=== PATIENT | female | born 1950 | race Caucasian/White ===

== ENCOUNTER 2022-12-11 17:03 | Inpatient (IN) | payer OTHER, MEDICAID ==
[~2022-12-11] VITALS: Ht 154.9 cm; Wt 68.9 kg
[~2022-12-11 17:03] MED LIST: CHOL500013 PO; DIF100 PO; DOXY100C5 PO; INSU100V7 SUBCUT; INSU100V9 SUBCUT; IPRA3AMP9 INH; LOVI40 SQ; SYN75 PO
[2022-12-11] MEDS ORDERED: NACL 0.9% 1,000 ML IV ONE ×2 (17:15→18:15)
[2022-12-11 17:21] VITALS: BP_SYST 68; RESP 20; TEMP 98.2; O2SAT 98
[2022-12-11] MEDS ORDERED: LEVO125T8 PO (17:48)
[2022-12-11] MEDS ORDERED: METF-379 PO (17:48)
[2022-12-11] MEDS ORDERED: APIX5TAB PO (17:48)
[2022-12-11] MEDS ORDERED: EMPA25TA PO (17:48)
[2022-12-11] MEDS ORDERED: OLME20TA23 PO (17:48)
[2022-12-11] MEDS ORDERED: ASPI-1393 PO (17:48)
[2022-12-11] MEDS ORDERED: GABA-531 PO (17:51)
[2022-12-11] MEDS ORDERED: [UNRECOGNIZED DRUG - CODE] PO (17:51)
[2022-12-11] MEDS ORDERED: LIDOCAINE/EPI 1% 1:100000 20 ML VIAL ONE (17:58)
[2022-12-11] MEDS ORDERED: NOREPINEPHRINE 4 MG/4 ML VIAL IV ONE (18:12)
[2022-12-11 18:20] LABS: BASOPHILS # (AUTO) 0.1 K/uL (0.0-0.2); EOSINOPHILS # (AUTO) 0.1 K/uL (0.0-0.4); EOSINOPHILS % (AUTO) 1.2 % (0.0-4.0); HEMATOCRIT 32.8 % (36-48); HEMOGLOBIN 10.8 g/dL (12.0-16.0); LYMPHOCYTES # (AUTO) 1.9 K/uL (1.0-5.5); LYMPHOCYTES % (AUTO) 26.3 % (20.5-51.5); MEAN CORPUSCULAR HEMOGLOBIN 33 pg (27-31); MEAN CORPUSCULAR HGB CONC 33 % (32-36); MEAN CORPUSCULAR VOLUME 101 fL (79.0-98.0); MONOCYTES # (AUTO) 0.6 K/uL (0.0-1.0); NEUTROPHILS # (AUTO) 4.5 K/uL (1.8-7.7); NEUTROPHILS % (AUTO) 63.5 % (40.0-70.0); PLATELET COUNT (AUTO) 245 K/uL (130-430); RED BLOOD CELL COUNT(AUTO) 3.23 MIL/uL (4.2-6.2); RED CELL DISTRIBUTION WIDTH 13.2 % (9.0-15.0); WHITE BLOOD COUNT (AUTO) 7.1 K/uL (4.8-10.8)
[2022-12-11 18:28] LABS: ANION GAP 12 (5-15); CALCIUM 8.1 mg/dL (8.4-11.0); CARBON DIOXIDE 19 mmol/L (23-29); CHLORIDE 99 mmol/L (98-107); CREATININE 2.91 mg/dL (0.55-1.30); GLUCOSE 345 mg/dL (74-106); POTASSIUM 4.5 mmol/L (3.5-5.1); SODIUM SERUM 130 mmol/L (136-145); UREA NITROGEN, BLOOD 66 mg/dL (8-21)
[2022-12-11] MEDS ORDERED: NOREPINEPHRINE BITARTRATE 4 MG in NS 246 ML IV ONE ×2 (18:30→19:15)
[2022-12-11 18:31] LABS: BLOOD GAS HCO3 18.4 mmol/L (21.0-27.0); BLOOD GAS PCO2 42.4 mmHg (35.0-45.0)
[2022-12-11 18:32] LABS: INR 1.1 (0.8-1.2); PROTHROMBIN TIME 11.2 SECS (9.5-12.5)
[2022-12-11 18:32] LABS: BLOOD GAS PH 7.255 (7.350-7.450)
[2022-12-11 18:33] LABS: ABG O2 SAT% ESTIMATE 85.2 % (94.0-100.0); ALLEN'S TEST POSITIVE (P); BLOOD GAS BASE EXCESS -8.4 mmol/L (-3.0-3.0); BLOOD GAS PO2 56.8 mmHg (75.0-100.0)
[2022-12-11 18:39] LABS: ALBUMIN 2.5 g/dL (3.4-4.8); ASPARTATE AMINOTRANSFERASE 12 U/L (10-37); TOTAL BILIRUBIN 0.3 mg/dL (0.0-1.0); TOTAL PROTEIN, SERUM 5.3 g/dL (6.4-8.3)
[2022-12-11 18:44] LABS: ALANINE AMINOTRANSFERASE 6 U/L (12-78)
[2022-12-11] MEDS ORDERED: cefTRIAXone 1 GM IVPB PREMIX 50 ML IV ONE (19:00)
[2022-12-11 19:12] LABS: CREATINE KINASE, TOTAL 35 U/L (26-192)
[2022-12-11 19:31] LABS: ACETONE, SERUM TRACE (NEGATIVE)
[2022-12-11 19:35] LABS: CLARITY/URINE CLEAR (CLEAR); COLOR,URINE YELLOW (YELLOW); PH,URINE 5.5 (5.0-8.0)
[2022-12-11 19:36] LABS: BILIRUBIN,URINE 1+ (NEGATIVE); BLOOD, URINE NEGATIVE (NEGATIVE); GLUCOSE,URINE 2+ (NEGATIVE); KETONES,URINE 1+ (NEGATIVE); LEUKOCYTE ESTERASE ,URINE NEGATIVE (NEGATIVE); NITRITE, URINE NEGATIVE (NEGATIVE); PROTEIN URINE NEGATIVE (NEGATIVE); UROBILINOGEN,URINE 0.2 (0.2-1.0)
[2022-12-11] MEDS ORDERED: INSULIN REGULAR, HUMAN 100 UNITS in NS 99 ML IV ONE ×2 (19:45)
[2022-12-11] MEDS ORDERED: NACL 0.9% 500 ML IV ONE (20:45)
[2022-12-11] MEDS ORDERED: INSULIN REGULAR, HUMAN 100 UNITS in NS 99 ML IV PRN ×2 (20:45)
[2022-12-11 21:02] LABS: RBC,URINE NONE SEEN /HPF (0-3)
[2022-12-11 21:03] LABS: BACTERIA,URINE RARE /HPF (None Seen); WBC,URINE NONE SEEN /HPF (0-3)
[2022-12-11] MEDS: NACL 0.9% 1,000 ML IV SCH ×2 (22:10→23:59)
[2022-12-11 22:46] VITALS: BP_SYST 102; PULSE 75; RESP 14; TEMP 96.8; O2SAT 97
[2022-12-11 23:00] VITALS: BP_SYST 102; BP_SYST 109; PULSE 77; RESP 10; RESP 9; TEMP 96.8; O2SAT 98; O2SAT 99
[2022-12-12] VITALS (24 sets, daily range): BP systolic 81–138; PULSE 67–111; RESP 10–28; TEMP 97–98.2; O2SAT 92–100
[2022-12-12] MEDS ORDERED: NOREPINEPHRINE 4 MG/4 ML VIAL IV ONE ×2 (00:35→05:57)
[2022-12-12] MEDS: NOREPINEPHRINE BITARTRATE 4 MG in NS 246 ML IV PRN ×2 (01:01→06:05)
[2022-12-12 04:56] LABS: ALANINE AMINOTRANSFERASE 9 U/L (12-78); ALBUMIN 2.8 g/dL (3.4-4.8); ANION GAP 13 (5-15); ASPARTATE AMINOTRANSFERASE 12 U/L (10-37); CALCIUM 8.5 mg/dL (8.4-11.0); CARBON DIOXIDE 21 mmol/L (23-29); CHLORIDE 108 mmol/L (98-107); CREATININE 1.69 mg/dL (0.55-1.30); GLUCOSE 115 mg/dL (74-106); POTASSIUM 3.9 mmol/L (3.5-5.1); SODIUM SERUM 142 mmol/L (136-145); THYROID STIMULATING HORMONE 2.83 uIu/mL (0.34-4.82); TOTAL BILIRUBIN 0.3 mg/dL (0.0-1.0); TOTAL PROTEIN, SERUM 6.3 g/dL (6.4-8.3); UREA NITROGEN, BLOOD 48 mg/dL (8-21)
[2022-12-12 05:03] LABS: BASOPHILS # (AUTO) 0.2 K/uL (0.0-0.2); BASOPHILS % (AUTO) 2.2 % (0.0-2.0); EOSINOPHILS % (AUTO) 0.1 % (0.0-4.0); HEMATOCRIT 39.6 % (36-48); HEMOGLOBIN 12.9 g/dL (12.0-16.0); LYMPHOCYTES # (AUTO) 1.6 K/uL (1.0-5.5); LYMPHOCYTES % (AUTO) 14.6 % (20.5-51.5); MEAN CORPUSCULAR HEMOGLOBIN 33 pg (27-31); MEAN CORPUSCULAR HGB CONC 33 % (32-36); MEAN CORPUSCULAR VOLUME 102 fL (79.0-98.0); MONOCYTES # (AUTO) 0.5 K/uL (0.0-1.0); MONOCYTES % (AUTO) 4.4 % (1.7-9.3); NEUTROPHILS # (AUTO) 8.6 K/uL (1.8-7.7); NEUTROPHILS % (AUTO) 78.7 % (40.0-70.0); PLATELET COUNT (AUTO) 314 K/uL (130-430); RED BLOOD CELL COUNT(AUTO) 3.91 MIL/uL (4.2-6.2); RED CELL DISTRIBUTION WIDTH 13.3 % (9.0-15.0); WHITE BLOOD COUNT (AUTO) 10.9 K/uL (4.8-10.8)
[2022-12-12] MEDS: NACL 0.9% 1,000 ML IV SCH ×3 (06:34→21:27)
[2022-12-12] MEDS ORDERED: NS 500 ML IV ONE (08:30)
[2022-12-12] MEDS ORDERED: NACL 0.9% 1,000 ML IV ONE (09:00)
[2022-12-12 09:05] LABS: CHOLESTEROL 266 mg/dL (<200); HDL CHOLESTEROL 52 mg/dL (>55); LIPASE 233 U/L (73-393); TRIGLYCERIDES 199 mg/dL (30-150)
[2022-12-12] MEDS ORDERED: LEVOTHYROXINE SODIUM 0.125 MG TABLET PO ONE (11:00)
[2022-12-12] MEDS ORDERED: NOREPINEPHRINE BITARTRATE 8 MG in NS 246 ML IV PRN (11:00)
[2022-12-12] MEDS: NOREPINEPHRINE BITARTRATE 8 MG in NS 246 ML IV PRN ×2 (12:04→20:14)
[2022-12-12] MEDS: GABAPENTIN 300 MG CAPSULE PO SCH ×2 (14:54→20:48)
[2022-12-12] MEDS: INSULIN REGULAR, HUMAN 100 UNITS/ML, 3 ML VIAL (humuLIN R) SUBCUT PRN ×4 (14:54→20:59)
[2022-12-12] MEDS: APIXABAN 2.5 MG TABLET PO SCH (20:48)
[2022-12-12] MEDS: INSULIN GLARGINE 100 UNITS/ML, 10 ML VIAL SUBCUT SCH (20:58)
[2022-12-12] MEDS ORDERED: hydrALAZINE HCL 20 MG/ML VIAL IVP PRN (22:30)
[2022-12-13] VITALS (24 sets, daily range): BP systolic 90–136; PULSE 63–88; RESP 15–24; TEMP 96.9–98.2; O2SAT 92–98
[2022-12-13] MEDS ORDERED: NOREPINEPHRINE 4 MG/4 ML VIAL IV ONE (02:51)
[2022-12-13] MEDS: NACL 0.9% 1,000 ML IV SCH ×3 (05:24→19:25)
[2022-12-13] MEDS: NOREPINEPHRINE BITARTRATE 8 MG in NS 246 ML IV PRN (05:35)
[2022-12-13 06:08] LABS: BASOPHILS # (AUTO) 0.1 K/uL (0.0-0.2); BASOPHILS % (AUTO) 1.4 % (0.0-2.0); EOSINOPHILS # (AUTO) 0.1 K/uL (0.0-0.4); EOSINOPHILS % (AUTO) 0.7 % (0.0-4.0); HEMATOCRIT 36.1 % (36-48); HEMOGLOBIN 11.9 g/dL (12.0-16.0); LYMPHOCYTES # (AUTO) 2.8 K/uL (1.0-5.5); LYMPHOCYTES % (AUTO) 31.8 % (20.5-51.5); MEAN CORPUSCULAR HEMOGLOBIN 33 pg (27-31); MEAN CORPUSCULAR HGB CONC 33 % (32-36); MEAN CORPUSCULAR VOLUME 100 fL (79.0-98.0); MONOCYTES # (AUTO) 0.4 K/uL (0.0-1.0); NEUTROPHILS # (AUTO) 5.4 K/uL (1.8-7.7); NEUTROPHILS % (AUTO) 61.1 % (40.0-70.0); PLATELET COUNT (AUTO) 236 K/uL (130-430); WHITE BLOOD COUNT (AUTO) 8.9 K/uL (4.8-10.8)
[2022-12-13 06:23] LABS: ANION GAP 10 (5-15); CALCIUM 8.1 mg/dL (8.4-11.0); CARBON DIOXIDE 21 mmol/L (23-29); CHLORIDE 113 mmol/L (98-107); CREATININE 0.91 mg/dL (0.55-1.30); GLUCOSE 84 mg/dL (74-106); PHOSPHORUS 1.9 mg/dL (2.7-4.5); POTASSIUM 3.7 mmol/L (3.5-5.1); SODIUM SERUM 144 mmol/L (136-145); UREA NITROGEN, BLOOD 15 mg/dL (8-21)
[2022-12-13] MEDS: LEVOTHYROXINE SODIUM 0.125 MG TABLET PO SCH (06:55)
[2022-12-13] MEDS: BACLOFEN 10 MG TABLET PO SCH (09:52)
[2022-12-13] MEDS: ASPIRIN 81 MG TABLET(ECOTRIN) PO SCH (09:52)
[2022-12-13] MEDS: APIXABAN 2.5 MG TABLET PO SCH ×2 (09:53→21:09)
[2022-12-13] MEDS: GABAPENTIN 300 MG CAPSULE PO SCH ×3 (09:54→21:01)
[2022-12-13] MEDS: CHOLECALCIFEROL (VITAMIN D3) 5,000 UNIT TABLET PO SCH (09:54)
[2022-12-13] MEDS ORDERED: ALBUMIN HUMAN 25% 100 ML IV ONE (11:00)
[2022-12-13] MEDS: INSULIN REGULAR, HUMAN 100 UNITS/ML, 3 ML VIAL (humuLIN R) SUBCUT PRN ×2 (12:25→21:07)
[2022-12-13] MEDS ORDERED: K PHOS 30 MM in NS 250 ML IV ONE (12:30)
[2022-12-13] MEDS ORDERED: ATORVASTATIN 20 MG TABLET PO ONE (12:45)
[2022-12-13 19:37] LABS: URINE SODIUM, RANDOM 119 mmol/L (40-220)
[2022-12-13] MEDS: INSULIN GLARGINE 100 UNITS/ML, 10 ML VIAL SUBCUT SCH (21:08)
[2022-12-14] VITALS (24 sets, daily range): BP systolic 105–160; PULSE 56–84; RESP 11–23; TEMP 97.2–97.9; O2SAT 90–98
[2022-12-14] MEDS: NACL 0.9% 1,000 ML IV SCH ×4 (00:54→22:06)
[2022-12-14] MEDS: NOREPINEPHRINE BITARTRATE 8 MG in NS 246 ML IV PRN (01:02)
[2022-12-14 05:04] LABS: ANION GAP 8 (5-15); CALCIUM 8.6 mg/dL (8.4-11.0); CARBON DIOXIDE 25 mmol/L (23-29); CHLORIDE 111 mmol/L (98-107); CREATININE 0.69 mg/dL (0.55-1.30); GLUCOSE 106 mg/dL (74-106); PHOSPHORUS 2.5 mg/dL (2.7-4.5); POTASSIUM 3.8 mmol/L (3.5-5.1); SODIUM SERUM 144 mmol/L (136-145); UREA NITROGEN, BLOOD 8 mg/dL (8-21)
[2022-12-14] MEDS: LEVOTHYROXINE SODIUM 0.125 MG TABLET PO SCH (06:22)
[2022-12-14] MEDS: ATORVASTATIN 20 MG TABLET PO SCH (09:29)
[2022-12-14] MEDS: BACLOFEN 10 MG TABLET PO SCH (09:29)
[2022-12-14] MEDS: ASPIRIN 81 MG TABLET(ECOTRIN) PO SCH (09:29)
[2022-12-14] MEDS: GABAPENTIN 300 MG CAPSULE PO SCH ×3 (09:30→21:56)
[2022-12-14] MEDS: CHOLECALCIFEROL (VITAMIN D3) 5,000 UNIT TABLET PO SCH (09:30)
[2022-12-14] MEDS: APIXABAN 2.5 MG TABLET PO SCH ×2 (09:33→21:58)
[2022-12-14] MEDS: INSULIN REGULAR, HUMAN 100 UNITS/ML, 3 ML VIAL (humuLIN R) SUBCUT PRN ×3 (11:51→22:02)
[2022-12-14] MEDS ORDERED: POLY15DR31 EACH EYE (12:31)
[2022-12-14] MEDS ORDERED: MIDODRINE HCL 5 MG TABLET (PROAMATINE) PO ONE (15:00)
[2022-12-14] MEDS ORDERED: K PHOS 30 MM in NS 250 ML IV ONE (20:30)
[2022-12-14] MEDS: INSULIN GLARGINE 100 UNITS/ML, 10 ML VIAL SUBCUT SCH (22:00)
[2022-12-14] MEDS: MIDODRINE HCL 5 MG TABLET (PROAMATINE) PO SCH (22:04)
[2022-12-15] VITALS (24 sets, daily range): BP systolic 95–140; PULSE 64–102; RESP 12–29; TEMP 97.3–98.7; O2SAT 89–98
[2022-12-15 05:26] LABS: ANION GAP 9 (5-15); CALCIUM 8.6 mg/dL (8.4-11.0); CARBON DIOXIDE 25 mmol/L (23-29); CHLORIDE 108 mmol/L (98-107); CREATININE 0.55 mg/dL (0.55-1.30); GLUCOSE 200 mg/dL (74-106); PHOSPHORUS 4.7 mg/dL (2.7-4.5); POTASSIUM 4.7 mmol/L (3.5-5.1); SODIUM SERUM 142 mmol/L (136-145); UREA NITROGEN, BLOOD 14 mg/dL (8-21)
[2022-12-15 06:06] LABS: CORTISOL (SERUM) 6.4 ug/dL (6.2-19.4)
[2022-12-15] MEDS: LEVOTHYROXINE SODIUM 0.125 MG TABLET PO SCH (06:30)
[2022-12-15] MEDS: NACL 0.9% 1,000 ML IV SCH ×2 (06:30→11:03)
[2022-12-15] MEDS: INSULIN REGULAR, HUMAN 100 UNITS/ML, 3 ML VIAL (humuLIN R) SUBCUT PRN ×2 (06:41→11:18)
[2022-12-15 08:06] LABS: CREATININE, URINE 14.6 mg/dL (Not Estab.); MICROALBUMIN URINE RANDOM 24.1 ug/mL (Not Estab.)
[2022-12-15] MEDS: MIDODRINE HCL 5 MG TABLET (PROAMATINE) PO SCH ×2 (08:36→21:39)
[2022-12-15] MEDS: ASPIRIN 81 MG TABLET(ECOTRIN) PO SCH (08:36)
[2022-12-15] MEDS: GABAPENTIN 300 MG CAPSULE PO SCH ×3 (08:36→21:38)
[2022-12-15] MEDS: ATORVASTATIN 20 MG TABLET PO SCH (08:36)
[2022-12-15] MEDS: CHOLECALCIFEROL (VITAMIN D3) 5,000 UNIT TABLET PO SCH (08:36)
[2022-12-15] MEDS: BACLOFEN 10 MG TABLET PO SCH (08:37)
[2022-12-15] MEDS: APIXABAN 2.5 MG TABLET PO SCH ×2 (08:37→21:39)
[2022-12-15] MEDS: INSULIN Lispro 100 UNITS/ML, 3 ML VIAL (humaLOG) SUBCUT SCH (17:58)
[2022-12-15] MEDS: INSULIN LISPRO SLIDING SCALE 100 UNITS/ML, 3 ML VIAL (humaLOG) SUBCUT PRN ×3 (17:59→21:51)
[2022-12-15] MEDS: INSULIN GLARGINE 100 UNITS/ML, 10 ML VIAL SUBCUT SCH ×2 (21:53→21:54)
[2022-12-16] VITALS (24 sets, daily range): BP systolic 91–131; PULSE 61–88; RESP 13–23; TEMP 96.4–98.1; O2SAT 89–95
[2022-12-16 05:20] LABS: BASOPHILS # (AUTO) 0.1 K/uL (0.0-0.2); BASOPHILS % (AUTO) 1.2 % (0.0-2.0); EOSINOPHILS # (AUTO) 0.2 K/uL (0.0-0.4); EOSINOPHILS % (AUTO) 3.3 % (0.0-4.0); HEMATOCRIT 33.2 % (36-48); LYMPHOCYTES % (AUTO) 34.8 % (20.5-51.5); MEAN CORPUSCULAR HEMOGLOBIN 33 pg (27-31); MEAN CORPUSCULAR HGB CONC 33 % (32-36); MEAN CORPUSCULAR VOLUME 101 fL (79.0-98.0); MONOCYTES # (AUTO) 0.4 K/uL (0.0-1.0); MONOCYTES % (AUTO) 6.4 % (1.7-9.3); NEUTROPHILS # (AUTO) 3.2 K/uL (1.8-7.7); NEUTROPHILS % (AUTO) 54.3 % (40.0-70.0); PLATELET COUNT (AUTO) 210 K/uL (130-430); RED CELL DISTRIBUTION WIDTH 13.3 % (9.0-15.0); WHITE BLOOD COUNT (AUTO) 5.9 K/uL (4.8-10.8)
[2022-12-16 05:42] LABS: ANION GAP 8 (5-15); CALCIUM 8.6 mg/dL (8.4-11.0); CARBON DIOXIDE 28 mmol/L (23-29); CHLORIDE 107 mmol/L (98-107); CREATININE 0.65 mg/dL (0.55-1.30); GLUCOSE 143 mg/dL (74-106); POTASSIUM 3.7 mmol/L (3.5-5.1); SODIUM SERUM 143 mmol/L (136-145); UREA NITROGEN, BLOOD 16 mg/dL (8-21)
[2022-12-16] MEDS: LEVOTHYROXINE SODIUM 0.125 MG TABLET PO SCH (06:20)
[2022-12-16] MEDS: INSULIN LISPRO SLIDING SCALE 100 UNITS/ML, 3 ML VIAL (humaLOG) SUBCUT PRN ×3 (06:21→17:09)
[2022-12-16] MEDS: INSULIN Lispro 100 UNITS/ML, 3 ML VIAL (humaLOG) SUBCUT SCH ×3 (06:22→17:14)
[2022-12-16] MEDS: BACLOFEN 10 MG TABLET PO SCH (08:05)
[2022-12-16] MEDS: ASPIRIN 81 MG TABLET(ECOTRIN) PO SCH (08:05)
[2022-12-16] MEDS: APIXABAN 2.5 MG TABLET PO SCH ×2 (08:06→20:39)
[2022-12-16] MEDS: VITAMIN B COMPLEX 1 CAP/TAB PO SCH (08:07)
[2022-12-16] MEDS: MIDODRINE HCL 5 MG TABLET (PROAMATINE) PO SCH ×2 (08:07→20:38)
[2022-12-16] MEDS: GABAPENTIN 300 MG CAPSULE PO SCH ×3 (08:07→20:38)
[2022-12-16] MEDS: CHOLECALCIFEROL (VITAMIN D3) 5,000 UNIT TABLET PO SCH (08:07)
[2022-12-16] MEDS: ATORVASTATIN 20 MG TABLET PO SCH (08:07)
[2022-12-16] MEDS: NACL 0.9% 1,000 ML IV SCH ×4 (08:27→18:07)
[2022-12-16] MEDS: PEG 400/HYPROMELLOSE/GLYCERIN 15 ML DROPS EACH EYE SCH ×4 (08:28→20:38)
[2022-12-16] MEDS: INSULIN GLARGINE 100 UNITS/ML, 10 ML VIAL SUBCUT SCH (20:38)
[2022-12-17] VITALS (19 sets, daily range): BP systolic 90–140; PULSE 66–87; RESP 14–20; TEMP 97.8–98.4; O2SAT 91–98
[2022-12-17 05:21] LABS: BASOPHILS # (AUTO) 0.1 K/uL (0.0-0.2); BASOPHILS % (AUTO) 1.1 % (0.0-2.0); EOSINOPHILS # (AUTO) 0.2 K/uL (0.0-0.4); EOSINOPHILS % (AUTO) 3.1 % (0.0-4.0); HEMATOCRIT 33.4 % (36-48); HEMOGLOBIN 10.7 g/dL (12.0-16.0); LYMPHOCYTES # (AUTO) 2.1 K/uL (1.0-5.5); LYMPHOCYTES % (AUTO) 30.8 % (20.5-51.5); MEAN CORPUSCULAR HEMOGLOBIN 33 pg (27-31); MEAN CORPUSCULAR HGB CONC 32 % (32-36); MEAN CORPUSCULAR VOLUME 101 fL (79.0-98.0); MONOCYTES # (AUTO) 0.4 K/uL (0.0-1.0); MONOCYTES % (AUTO) 5.6 % (1.7-9.3); NEUTROPHILS # (AUTO) 4.1 K/uL (1.8-7.7); NEUTROPHILS % (AUTO) 59.4 % (40.0-70.0); PLATELET COUNT (AUTO) 210 K/uL (130-430); RED BLOOD CELL COUNT(AUTO) 3.31 MIL/uL (4.2-6.2); RED CELL DISTRIBUTION WIDTH 13.4 % (9.0-15.0); WHITE BLOOD COUNT (AUTO) 6.9 K/uL (4.8-10.8)
[2022-12-17 05:31] LABS: ANION GAP 8 (5-15); CALCIUM 8.6 mg/dL (8.4-11.0); CARBON DIOXIDE 28 mmol/L (23-29); CHLORIDE 108 mmol/L (98-107); CREATININE 0.64 mg/dL (0.55-1.30); GLUCOSE 158 mg/dL (74-106); POTASSIUM 3.9 mmol/L (3.5-5.1); SODIUM SERUM 144 mmol/L (136-145); UREA NITROGEN, BLOOD 18 mg/dL (8-21)
[2022-12-17] MEDS: NACL 0.9% 1,000 ML IV SCH ×2 (05:38→15:43)
[2022-12-17] MEDS: INSULIN LISPRO SLIDING SCALE 100 UNITS/ML, 3 ML VIAL (humaLOG) SUBCUT PRN ×3 (06:20→16:35)
[2022-12-17] MEDS: LEVOTHYROXINE SODIUM 0.125 MG TABLET PO SCH (07:30)
[2022-12-17] MEDS: BACLOFEN 10 MG TABLET PO SCH (09:12)
[2022-12-17] MEDS: PEG 400/HYPROMELLOSE/GLYCERIN 15 ML DROPS EACH EYE SCH ×4 (09:12→22:05)
[2022-12-17] MEDS: VITAMIN B COMPLEX 1 CAP/TAB PO SCH (09:13)
[2022-12-17] MEDS: GABAPENTIN 300 MG CAPSULE PO SCH ×3 (09:13→22:05)
[2022-12-17] MEDS: ASPIRIN 81 MG TABLET(ECOTRIN) PO SCH (09:13)
[2022-12-17] MEDS: APIXABAN 2.5 MG TABLET PO SCH ×2 (09:14→22:08)
[2022-12-17] MEDS: CHOLECALCIFEROL (VITAMIN D3) 5,000 UNIT TABLET PO SCH (09:15)
[2022-12-17] MEDS: ATORVASTATIN 20 MG TABLET PO SCH (09:19)
[2022-12-17] MEDS: MIDODRINE HCL 5 MG TABLET (PROAMATINE) PO SCH ×2 (09:20→22:05)
[2022-12-17] MEDS: INSULIN Lispro 100 UNITS/ML, 3 ML VIAL (humaLOG) SUBCUT SCH ×3 (09:39→16:34)
[2022-12-17] MEDS: INSULIN GLARGINE 100 UNITS/ML, 10 ML VIAL SUBCUT SCH (22:08)
[2022-12-18] VITALS (7 sets, daily range): BP systolic 102–110; PULSE 66–87; RESP 16–18; TEMP 97.4–98.6; O2SAT 95–98
[2022-12-18 05:29] LABS: ANION GAP 4 (5-15); CALCIUM 8.7 mg/dL (8.4-11.0); CARBON DIOXIDE 31 mmol/L (23-29); CHLORIDE 107 mmol/L (98-107); CREATININE 0.68 mg/dL (0.55-1.30); GLUCOSE 184 mg/dL (74-106); SODIUM SERUM 142 mmol/L (136-145); UREA NITROGEN, BLOOD 20 mg/dL (8-21)
[2022-12-18 05:37] LABS: BASOPHILS # (AUTO) 0.1 K/uL (0.0-0.2); BASOPHILS % (AUTO) 1.3 % (0.0-2.0); EOSINOPHILS # (AUTO) 0.2 K/uL (0.0-0.4); EOSINOPHILS % (AUTO) 4.4 % (0.0-4.0); HEMATOCRIT 32.8 % (36-48); HEMOGLOBIN 10.6 g/dL (12.0-16.0); LYMPHOCYTES # (AUTO) 1.9 K/uL (1.0-5.5); MEAN CORPUSCULAR HEMOGLOBIN 33 pg (27-31); MEAN CORPUSCULAR HGB CONC 32 % (32-36); MEAN CORPUSCULAR VOLUME 102 fL (79.0-98.0); MONOCYTES # (AUTO) 0.4 K/uL (0.0-1.0); MONOCYTES % (AUTO) 8.2 % (1.7-9.3); NEUTROPHILS # (AUTO) 2.3 K/uL (1.8-7.7); NEUTROPHILS % (AUTO) 47.1 % (40.0-70.0); PLATELET COUNT (AUTO) 215 K/uL (130-430); RED BLOOD CELL COUNT(AUTO) 3.22 MIL/uL (4.2-6.2); RED CELL DISTRIBUTION WIDTH 13.6 % (9.0-15.0); WHITE BLOOD COUNT (AUTO) 4.8 K/uL (4.8-10.8)
[2022-12-18] MEDS: LEVOTHYROXINE SODIUM 0.125 MG TABLET PO SCH (06:05)
[2022-12-18] MEDS: NACL 0.9% 1,000 ML IV SCH ×2 (06:07→18:04)
[2022-12-18] MEDS: INSULIN Lispro 100 UNITS/ML, 3 ML VIAL (humaLOG) SUBCUT SCH ×3 (06:09→17:00)
[2022-12-18] MEDS: INSULIN LISPRO SLIDING SCALE 100 UNITS/ML, 3 ML VIAL (humaLOG) SUBCUT PRN ×4 (06:10→22:38)
[2022-12-18] MEDS: PEG 400/HYPROMELLOSE/GLYCERIN 15 ML DROPS EACH EYE SCH ×4 (09:56→22:31)
[2022-12-18] MEDS: MIDODRINE HCL 5 MG TABLET (PROAMATINE) PO SCH ×2 (09:56→22:32)
[2022-12-18] MEDS: CHOLECALCIFEROL (VITAMIN D3) 5,000 UNIT TABLET PO SCH (09:57)
[2022-12-18] MEDS: APIXABAN 2.5 MG TABLET PO SCH ×2 (09:58→22:33)
[2022-12-18] MEDS: ASPIRIN 81 MG TABLET(ECOTRIN) PO SCH (10:00)
[2022-12-18] MEDS: ATORVASTATIN 20 MG TABLET PO SCH (10:00)
[2022-12-18] MEDS: GABAPENTIN 300 MG CAPSULE PO SCH ×3 (10:01→22:32)
[2022-12-18] MEDS: BACLOFEN 10 MG TABLET PO SCH (10:01)
[2022-12-18] MEDS: VITAMIN B COMPLEX 1 CAP/TAB PO SCH (10:09)
[2022-12-18] MEDS ORDERED: MORPHINE 2 MG/ML INJ. SYRINGE IVP PRN (10:15)
[2022-12-18] MEDS ORDERED: NALOXONE HCL 0.4 MG/ML AMP (NARCAN) IVP PRN (10:15)
[2022-12-18] MEDS: INSULIN GLARGINE 100 UNITS/ML, 10 ML VIAL SUBCUT SCH (22:36)
[2022-12-19] VITALS (7 sets, daily range): BP systolic 90–110; PULSE 69–79; RESP 14–16; TEMP 96.6–97.2; O2SAT 94–97
[2022-12-19] MEDS: LEVOTHYROXINE SODIUM 0.125 MG TABLET PO SCH (06:07)
[2022-12-19] MEDS: INSULIN Lispro 100 UNITS/ML, 3 ML VIAL (humaLOG) SUBCUT SCH ×3 (06:09→16:40)
[2022-12-19 06:41] LABS: BASOPHILS # (AUTO) 0.1 K/uL (0.0-0.2); BASOPHILS % (AUTO) 1.1 % (0.0-2.0); EOSINOPHILS # (AUTO) 0.2 K/uL (0.0-0.4); EOSINOPHILS % (AUTO) 3.2 % (0.0-4.0); HEMATOCRIT 34.6 % (36-48); HEMOGLOBIN 11.2 g/dL (12.0-16.0); LYMPHOCYTES # (AUTO) 1.6 K/uL (1.0-5.5); LYMPHOCYTES % (AUTO) 26.5 % (20.5-51.5); MEAN CORPUSCULAR HEMOGLOBIN 33 pg (27-31); MEAN CORPUSCULAR HGB CONC 32 % (32-36); MEAN CORPUSCULAR VOLUME 102 fL (79.0-98.0); MONOCYTES # (AUTO) 0.6 K/uL (0.0-1.0); MONOCYTES % (AUTO) 9.4 % (1.7-9.3); NEUTROPHILS # (AUTO) 3.6 K/uL (1.8-7.7); NEUTROPHILS % (AUTO) 59.8 % (40.0-70.0); PLATELET COUNT (AUTO) 257 K/uL (130-430); RED BLOOD CELL COUNT(AUTO) 3.39 MIL/uL (4.2-6.2); RED CELL DISTRIBUTION WIDTH 13.1 % (9.0-15.0)
[2022-12-19 06:52] LABS: ANION GAP 5 (5-15); CALCIUM 9.2 mg/dL (8.4-11.0); CARBON DIOXIDE 32 mmol/L (23-29); CHLORIDE 105 mmol/L (98-107); CREATININE 0.56 mg/dL (0.55-1.30); GLUCOSE 154 mg/dL (74-106); POTASSIUM 4.3 mmol/L (3.5-5.1); SODIUM SERUM 142 mmol/L (136-145); UREA NITROGEN, BLOOD 19 mg/dL (8-21)
[2022-12-19] MEDS: NACL 0.9% 1,000 ML IV SCH ×2 (07:49→21:24)
[2022-12-19] MEDS: ASPIRIN 81 MG TABLET(ECOTRIN) PO SCH (09:30)
[2022-12-19] MEDS: MIDODRINE HCL 5 MG TABLET (PROAMATINE) PO SCH ×2 (09:30→21:23)
[2022-12-19] MEDS: CHOLECALCIFEROL (VITAMIN D3) 5,000 UNIT TABLET PO SCH (09:31)
[2022-12-19] MEDS: PEG 400/HYPROMELLOSE/GLYCERIN 15 ML DROPS EACH EYE SCH ×4 (09:31→21:23)
[2022-12-19] MEDS: GABAPENTIN 300 MG CAPSULE PO SCH ×3 (09:31→21:23)
[2022-12-19] MEDS: BACLOFEN 10 MG TABLET PO SCH (09:31)
[2022-12-19] MEDS: ATORVASTATIN 20 MG TABLET PO SCH (09:31)
[2022-12-19] MEDS: APIXABAN 2.5 MG TABLET PO SCH ×2 (09:33→21:40)
[2022-12-19] MEDS: VITAMIN B COMPLEX 1 CAP/TAB PO SCH (09:39)
[2022-12-19] MEDS ORDERED: NS 500 ML IV ONE (09:45)
[2022-12-19] MEDS: INSULIN LISPRO SLIDING SCALE 100 UNITS/ML, 3 ML VIAL (humaLOG) SUBCUT PRN ×3 (11:19→21:40)
[2022-12-19] MEDS: INSULIN GLARGINE 100 UNITS/ML, 10 ML VIAL SUBCUT SCH (21:40)
[2022-12-20 00:35] VITALS: BP_SYST 98; PULSE 80; RESP 14; TEMP 96; O2SAT 94
[2022-12-20] MEDS: ACETAMINOPHEN 325 MG TABLET PO PRN (00:50)
[2022-12-20] MEDS: LEVOTHYROXINE SODIUM 0.125 MG TABLET PO SCH (06:11)
[2022-12-20] MEDS: INSULIN Lispro 100 UNITS/ML, 3 ML VIAL (humaLOG) SUBCUT SCH ×3 (06:18→16:05)
[2022-12-20 06:42] LABS: BASOPHILS # (AUTO) 0.1 K/uL (0.0-0.2); EOSINOPHILS # (AUTO) 0.2 K/uL (0.0-0.4); EOSINOPHILS % (AUTO) 3.6 % (0.0-4.0); HEMATOCRIT 33.3 % (36-48); HEMOGLOBIN 10.9 g/dL (12.0-16.0); LYMPHOCYTES # (AUTO) 1.8 K/uL (1.0-5.5); LYMPHOCYTES % (AUTO) 35.6 % (20.5-51.5); MEAN CORPUSCULAR HEMOGLOBIN 33 pg (27-31); MEAN CORPUSCULAR HGB CONC 33 % (32-36); MEAN CORPUSCULAR VOLUME 102 fL (79.0-98.0); MONOCYTES # (AUTO) 0.5 K/uL (0.0-1.0); MONOCYTES % (AUTO) 9.7 % (1.7-9.3); NEUTROPHILS # (AUTO) 2.5 K/uL (1.8-7.7); NEUTROPHILS % (AUTO) 50.1 % (40.0-70.0); PLATELET COUNT (AUTO) 271 K/uL (130-430); RED BLOOD CELL COUNT(AUTO) 3.27 MIL/uL (4.2-6.2); RED CELL DISTRIBUTION WIDTH 13.4 % (9.0-15.0); WHITE BLOOD COUNT (AUTO) 4.9 K/uL (4.8-10.8)
[2022-12-20 06:49] LABS: ANION GAP 7 (5-15); CALCIUM 8.8 mg/dL (8.4-11.0); CARBON DIOXIDE 29 mmol/L (23-29); CHLORIDE 108 mmol/L (98-107); CREATININE 0.53 mg/dL (0.55-1.30); GLUCOSE 131 mg/dL (74-106); SODIUM SERUM 144 mmol/L (136-145); UREA NITROGEN, BLOOD 22 mg/dL (8-21)
[2022-12-20 08:00] VITALS: BP_SYST 115; PULSE 71; RESP 15; TEMP 97; O2SAT 95
[2022-12-20] MEDS: BACLOFEN 10 MG TABLET PO SCH (08:42)
[2022-12-20] MEDS: CHOLECALCIFEROL (VITAMIN D3) 5,000 UNIT TABLET PO SCH (08:42)
[2022-12-20] MEDS: GABAPENTIN 300 MG CAPSULE PO SCH ×3 (08:42→20:37)
[2022-12-20] MEDS: ASPIRIN 81 MG TABLET(ECOTRIN) PO SCH (08:42)
[2022-12-20] MEDS: PEG 400/HYPROMELLOSE/GLYCERIN 15 ML DROPS EACH EYE SCH ×4 (08:42→20:45)
[2022-12-20] MEDS: ATORVASTATIN 20 MG TABLET PO SCH (08:43)
[2022-12-20] MEDS: VITAMIN B COMPLEX 1 CAP/TAB PO SCH (08:43)
[2022-12-20] MEDS: APIXABAN 2.5 MG TABLET PO SCH ×2 (08:46→20:43)
[2022-12-20] MEDS: MIDODRINE HCL 5 MG TABLET (PROAMATINE) PO SCH ×2 (08:50→20:38)
[2022-12-20] MEDS: NACL 0.9% 1,000 ML IV SCH (09:40)
[2022-12-20 09:50] VITALS: O2SAT 95
[2022-12-20] MEDS: INSULIN LISPRO SLIDING SCALE 100 UNITS/ML, 3 ML VIAL (humaLOG) SUBCUT PRN ×3 (12:59→20:44)
[2022-12-20 16:37] VITALS: BP_SYST 114; PULSE 73; RESP 17; TEMP 97.1; O2SAT 96
[2022-12-20 19:00] VITALS: O2SAT 94
[2022-12-20 20:00] VITALS: BP_SYST 110; PULSE 86; RESP 16; TEMP 96.3; O2SAT 92
[2022-12-20] MEDS: INSULIN GLARGINE 100 UNITS/ML, 10 ML VIAL SUBCUT SCH (20:44)
[2022-12-21 00:14] VITALS: BP_SYST 94; PULSE 84; RESP 15; TEMP 96.5; O2SAT 95
[2022-12-21] MEDS: NACL 0.9% 1,000 ML IV SCH (00:45)
[2022-12-21] MEDS: LEVOTHYROXINE SODIUM 0.125 MG TABLET PO SCH (06:33)
[2022-12-21] MEDS: INSULIN Lispro 100 UNITS/ML, 3 ML VIAL (humaLOG) SUBCUT SCH ×2 (06:36→12:10)
[2022-12-21 08:30] VITALS: BP_SYST 119; PULSE 83; RESP 17; TEMP 98; O2SAT 100
[2022-12-21] MEDS: ASPIRIN 81 MG TABLET(ECOTRIN) PO SCH (08:55)
[2022-12-21] MEDS: GABAPENTIN 300 MG CAPSULE PO SCH (08:55)
[2022-12-21] MEDS: ATORVASTATIN 20 MG TABLET PO SCH (08:55)
[2022-12-21] MEDS: BACLOFEN 10 MG TABLET PO SCH (08:55)
[2022-12-21] MEDS: CHOLECALCIFEROL (VITAMIN D3) 5,000 UNIT TABLET PO SCH (08:55)
[2022-12-21] MEDS: PEG 400/HYPROMELLOSE/GLYCERIN 15 ML DROPS EACH EYE SCH (08:55)
[2022-12-21] MEDS: VITAMIN B COMPLEX 1 CAP/TAB PO SCH (08:55)
[2022-12-21] MEDS: MIDODRINE HCL 5 MG TABLET (PROAMATINE) PO SCH (09:06)
[2022-12-21] MEDS: APIXABAN 2.5 MG TABLET PO SCH (09:06)
[2022-12-21] MEDS ORDERED: MIDO5TAB4 PO (11:07)
[2022-12-21] MEDS: ACETAMINOPHEN 325 MG TABLET PO PRN (12:04)
[2022-12-21] MEDS: INSULIN LISPRO SLIDING SCALE 100 UNITS/ML, 3 ML VIAL (humaLOG) SUBCUT PRN (12:12)
[2022-12-21 12:30] VITALS: BP_SYST 116; PULSE 83; RESP 17; TEMP 97.2; O2SAT 98
[2022-12-21 13:16] VITALS: O2SAT 100
[2022-12-21 13:41] VITALS: BP_SYST 119; PULSE 83; RESP 17; TEMP 98; O2SAT 100
== END 2022-12-21 14:20 | disposition home or self-care (01) | DRG 682 ==
LOC: SED 17:03 → SIC 20:40 → STU 12-17 13:49 → SMU 12-19 12:19
PROVIDERS: ADMIT Internal Medicine; ATTEND Internal Medicine
PROC: 05HY33Z Insertion of Infusion Device into Upper Vein, Percutaneous Approach (ICD-10-PCS; principal; 2022-12-11)
PROC: B54MZZA Ultrasonography of Right Upper Extremity Veins, Guidance (ICD-10-PCS; 2022-12-11)
PROC: 06HY33Z Insertion of Infusion Device into Lower Vein, Percutaneous Approach (ICD-10-PCS; 2022-12-11)
PROC: B54BZZA Ultrasonography of Right Lower Extremity Veins, Guidance (ICD-10-PCS; 2022-12-11)
DX: N17.0 Acute kidney failure with tubular necrosis (principal); E11.10 Type 2 diabetes mellitus with ketoacidosis without coma; R57.1 Hypovolemic shock; E43 Unspecified severe protein-calorie malnutrition; E87.1 Hypo-osmolality and hyponatremia; F03.90 Unspecified dementia, unspecified severity, without behavioral disturbance, psychotic disturbance, mood disturbance, and anxiety; E86.0 Dehydration; E78.00 Pure hypercholesterolemia, unspecified; I48.0 Paroxysmal atrial fibrillation; E03.9 Hypothyroidism, unspecified; I10 Essential (primary) hypertension; I95.9 Hypotension, unspecified; E55.9 Vitamin D deficiency, unspecified; E11.65 Type 2 diabetes mellitus with hyperglycemia; Z96.652 Presence of left artificial knee joint; E53.8 Deficiency of other specified B group vitamins; T50.2X5A Adverse effect of carbonic-anhydrase inhibitors, benzothiadiazides and other diuretics, initial encounter; K11.21 Acute sialoadenitis; E11.40 Type 2 diabetes mellitus with diabetic neuropathy, unspecified; Z79.899 Other long term (current) drug therapy; Z79.82 Long term (current) use of aspirin; Z79.4 Long term (current) use of insulin; Z68.28 Body mass index [BMI] 28.0-28.9, adult; Z79.01 Long term (current) use of anticoagulants; Z79.84 Long term (current) use of oral hypoglycemic drugs; Z86.718 Personal history of other venous thrombosis and embolism; Z90.710 Acquired absence of both cervix and uterus; Y92.89 Other specified places as the place of occurrence of the external cause
CPT/HCPCS: 36415; 36600; 70490; 71045; 76376; 76770; 80048; 80053; 80061; 81000; 82009; 82043; 82306; 82533; 82550; 82570; 82607; 82803; 82962; 83037; 83605; 83690; 83735; 83880; 84100; 84302; 84436; 84443; 84484; 85025; 85610-TC; 85730-TC; 87040; 87081; 93005; 93971; 96365; 96367; 97110-GP; 97116-GP; 97530-GP; 99285; C1751; G0378; J0696; J1815; J2270; J7030; J7040; J7050